=== PATIENT | male | born 1960 | race Caucasian/White ===

== ENCOUNTER 2016-11-21 14:58 | Emergency (ER) | payer OTHER ==
[~2016-11-21] VITALS: Ht 177.8 cm; Wt 88.0 kg
[2016-11-21 16:12] LABS: CONDITION Y; Hematocrit 43.7 % (41.0-53.0); Hemoglobin 14.6 g/dL (13.5-17.5); Mean Corpuscular Hemoglobin 27.8 pg (28.0-32.0); Mean Corpuscular Hgb Conc. 33.5 g/dL (32.0-36.0); Mean Corpuscular Volume 82.8 fL (80.0-100.0); Mean Platelet Volume 8.4 fL (7.4-10.4); Platelet Count (auto) 257 10^3/uL (140-450); Red Cell Distribution Width 14.9 % (11.6-16.0); SUSPECT SEE PRINTOUT; White Blood Cell 15.8 10^3/uL (4.4-10.8)
[2016-11-21 16:17] LABS: Metamyelocytes % 0; Myelocytes % 0; Promyelocytes % 0; Reactive Lymphocytes 0
[2016-11-21 16:25] LABS: Anion Gap 10 (5-15); Aspartate Aminotransferase 20 U/L (15-37); BUN/Creatinine Ratio 13.6; Blood Urea Nitrogen 14 mg/dL (7-18); Calcium 8.5 mg/dL (8.5-10.1); Carbon Dioxide 26 mmol/L (21-32); Chloride 105 mmol/L (98-107); GFR African American 96 mL/min; GFR Non-African American 79 mL/min; Glucose 189 mg/dL (74-106); Potassium 4.6 mmol/L (3.5-5.1); Sodium 141 mmol/L (136-145)
[2016-11-21 16:31] LABS: Alkaline Phosphatase 91 U/L (45-117); Bilirubin, Total 1.4 mg/dL (0.2-1.0); Total Protein 6.4 g/dL (6.4-8.2)
[2016-11-21 16:45] LABS: Anisocytosis Slight; Ovalocytes FEW; Platelet Estimate Adequate
[2016-11-21] MEDS ORDERED: SODIUM CHLORIDE 0.9% 1,000 ML IVB ONE ×2 (18:34)
[2016-11-21] MEDS ORDERED: SODIUM CHLORIDE 0.9% 1,000 ML IV ONE ×2 (18:34→20:00)
[2016-11-21] MEDS ORDERED: IOHEXOL 350 MG/ML 100ML IJ ONE (21:22)
[2016-11-21] MEDS ORDERED: ALBUTEROL SULF 2.5 MG/0.5ML(0.5%) NEB SOLN NEB ONE (21:45)
[2016-11-21] MEDS ORDERED: IPRATROPIUM BROM 0.5 MG/2.5ML INH SOL NEB ONE (21:45)
[2016-11-21 23:27] VITALS: BP 136/68
== END 2016-11-21 23:59 | disposition home or self-care (01) ==
LOC: ER 14:58
DX: J18.9 Pneumonia, unspecified organism (principal); E11.9 Type 2 diabetes mellitus without complications; R07.89 Other chest pain
CPT/HCPCS: 36415; 71020; 71275; 80053; 82550; 82962; 84484; 85007; 85027; 85379; 93005; 94640; 96360; 96361; 99285; J7030; Q9967

== ENCOUNTER 2023-02-28 07:49 | Inpatient (IN) | payer OTHER ==
[2023-02-27 23:50] VITALS: BP 129/71; PULSE 102; RESP 18; TEMP 97.9
[2023-02-28] VITALS (8 sets, daily range): BP systolic 129–130; BP diastolic 62–71; PULSE 101–121; RESP 18–27; TEMP 97.9; O2SAT 90–95
[~2023-02-28] VITALS: Ht 182.9 cm; Wt 95.4 kg
[~2023-02-28 07:49] MED LIST: FURO40TA4 PO; LISI-711 PO; POTA1TAB61 PO
[2023-02-28 08:56] LABS: Hematocrit 37.6 % (41.0-53.0); Hemoglobin 12.9 g/dL (13.5-17.5); Mean Corpuscular Hgb Conc. 34.2 g/dL (32.0-36.0); Red Blood Cells 4.76 10^6/uL (4.5-5.90); Red Cell Distribution Width 15.1 % (11.8-14.3); White Blood Cell 12.9 10^3/uL (4.4-10.8)
[2023-02-28 09:05] LABS: Basophils % (manual) 0 (0.0-2.0); Blast Cells 0; Eosinophils % (manual) 0 (0-7); Metamyelocytes % 0; Myelocytes % 0; Promyelocytes % 0; Reactive Lymphocytes 0
[2023-02-28 09:14] LABS: Alanine Aminotransferase 17 U/L (7-40); Albumin 4.2 g/dL (3.2-4.8); Alkaline Phosphatase 86 U/L (46-116); Anion Gap 11 (5-15); Aspartate Aminotransferase 17 U/L (13-40); Bilirubin, Total 1.6 mg/dL (0.2-1.0); Blood Urea Nitrogen 23 mg/dL (9-23); Calcium 8.5 mg/dL (8.5-10.1); Carbon Dioxide 23 mmol/L (20-30); Chloride 99 mmol/L (98-107); Glucose 238 mg/dL (74-106); Sodium 133 mmol/L (136-145); Total Protein 5.8 g/dL (5.7-8.2)
[2023-02-28] MEDS ORDERED: SODIUM CHLORIDE 0.9% 2,650 ML IV ONE (09:15)
[2023-02-28 09:29] LABS: Rapid Influenza B Negative (Negative)
[2023-02-28] MEDS ORDERED: cefTRIAXone 1GM/50ML D5W 50 ML IV ONE (09:30)
[2023-02-28] MEDS ORDERED: AZITHROMYCIN 500MG/ 250ML 250 ML IV ONE (09:30)
[2023-02-28 09:31] LABS: COVID19 ANTIGEN SOFIA FIA NEGATIVE (NEGATIVE); Rapid Influenza A Positive (Negative)
[2023-02-28 11:52] LABS: Urine Bacteria NONE SEEN /hpf (None Seen); Urine Blood TRACE /uL (Negative); Urine Clarity Clear (Clear); Urine Color Yellow (Yellow); Urine Protein, UAD 1+ (Negative); Urine Specific Gravity 1.018 (1.001-1.035); Urine Urobilinogen Normal (Negative); Urine WBC 3 /hpf (0 - 3); Urine pH 5.5 (5.0-8.0)
[2023-02-28 11:55] LABS: Amphetamine Screen, Urine Neg (NEGATIVE); Barbiturate Scree,Urine Neg (NEGATIVE); Benzodiazephine Screen, Urine Neg (NEGATIVE); Cannabinoid Screen, Urine Neg (NEGATIVE); Cocaine Screen, Urine Neg (NEGATIVE); Opiate Scree,Urine Neg (NEGATIVE); Phencyclidine Screen, Urine Neg (NEGATIVE)
[2023-02-28] MEDS ORDERED: DOCUSATE SOD 100 MG CAP PO PRN (12:00)
[2023-02-28] MEDS ORDERED: MORPHINE SULFATE INJ 2 MG/ml SYRG IV PRN (12:00)
[2023-02-28] MEDS ORDERED: DEXTROSE (50%) 50ML SYRG IV PRN (12:00)
[2023-02-28] MEDS ORDERED: ONDANSETRON HCL 4 MG/2 ML VIAL IV PRN (12:00)
[2023-02-28 12:26] LABS: Band Neutrophils % (manual) 14; Lymphocytes % (manual) 3 (10.0-50.0); Monocytes % (manual) 3 (0-12); Platelet Estimate Adequate
[2023-02-28] MEDS ORDERED: SODIUM CHLORIDE 0.9% 1,000 ML IV ONE (12:30)
[2023-02-28] MEDS: ALBUTEROL SULF 2.5 MG/0.5ML(0.5%) NEB SOLN NEB SCH ×2 (13:29→18:34)
[2023-02-28] MEDS: IPRATROPIUM BROM 0.5 MG/2.5ML INH SOL NEB SCH ×2 (13:30→18:34)
[2023-02-28 13:51] LABS: Base Excess 0.1 mmol/L (-2.0-2.0)
[2023-02-28] MEDS: SODIUM CHLORIDE 0.9% 1,000 ML IV SCH ×2 (14:43→20:20)
[2023-02-28] MEDS: methylPREDNISolone SOD SUCC 125 MG/2 ML VL IV SCH ×2 (14:43→22:26)
[2023-02-28 15:27] LABS: INR 1.09 (0.9-1.15); Prothrombin Time 11.4 sec (9.3-11.8)
[2023-02-28] MEDS: InsuLIN REG 1unit/0.01ml Soln (100units/ml) SC SCH ×2 (18:07→22:25)
[2023-02-28] MEDS: ACCU-CHEK COMFORT CURVE STRIP VI SCH ×2 (18:08→21:53)
[2023-02-28] MEDS: OSELTAMIVIR 75 MG CAP PO SCH (22:26)
[2023-03-01] VITALS (16 sets, daily range): BP systolic 133–141; BP diastolic 66–89; PULSE 87–105; RESP 18–22; TEMP 97.4–98.6; O2SAT 92–96
[2023-03-01] MEDS: ALBUTEROL SULF 2.5 MG/0.5ML(0.5%) NEB SOLN NEB SCH ×4 (00:22→18:10)
[2023-03-01] MEDS: IPRATROPIUM BROM 0.5 MG/2.5ML INH SOL NEB SCH ×4 (00:22→18:10)
[2023-03-01] MEDS: SODIUM CHLORIDE 0.9% 1,000 ML IV SCH ×2 (00:54→11:45)
[2023-03-01] MEDS: methylPREDNISolone SOD SUCC 125 MG/2 ML VL IV SCH ×2 (06:25→22:31)
[2023-03-01] MEDS: ACCU-CHEK COMFORT CURVE STRIP VI SCH ×4 (06:26→22:39)
[2023-03-01] MEDS: InsuLIN REG 1unit/0.01ml Soln (100units/ml) SC SCH ×3 (06:45→17:00)
[2023-03-01 07:52] LABS: Basophils # (auto) 0 10 ^3/uL (0-0.2); Basophils % (auto) 0.1 % (0.0-2.0); Eosinophils # (auto) 0 10 ^3/uL (0-0.8); Eosinophils % (auto) 0.1 % (0.0-7.0); Hematocrit 33.1 % (41.0-53.0); Hemoglobin 11.6 g/dL (13.5-17.5); Lymphocytes # (auto) 0.2 10 ^3/uL (0.4-5.4); Lymphocytes % (auto) 1.8 % (10.0-50.0); Mean Corpuscular Volume 80.1 fL (80.0-100.0); Monocytes # (auto) 0.3 10 ^3/uL (0-1.3); Monocytes % (auto) 2.7 % (0.0-12.0); Neutrophils # (auto) 10.1 10 ^3/uL (1.6-8.6); Neutrophils % (auto) 95.3 % (37.0-80.0); Red Blood Cells 4.13 10^6/uL (4.5-5.90); White Blood Cell 10.6 10^3/uL (4.4-10.8)
[2023-03-01 08:00] LABS: Alanine Aminotransferase 14 U/L (7-40); Albumin 3.8 g/dL (3.2-4.8); Alkaline Phosphatase 67 U/L (46-116); Anion Gap 6 (5-15); Aspartate Aminotransferase 18 U/L (13-40); BUN/Creatinine Ratio 12.9 (10.0-20.0); Bilirubin, Total 0.6 mg/dL (0.2-1.0); Blood Urea Nitrogen 12 mg/dL (9-23); Carbon Dioxide 24 mmol/L (20-30); Chloride 104 mmol/L (98-107); Glucose 253 mg/dL (74-106); Potassium 4.3 mmol/L (3.5-5.1); Sodium 134 mmol/L (136-145); Total Protein 5.4 g/dL (5.7-8.2)
[2023-03-01] MEDS ORDERED: DEXTROSE (50%) 50ML SYRG IV PRN (11:15)
[2023-03-01] MEDS ORDERED: INSULIN LANTUS (GLARGINE) 1 /0.01ml (100units/ml) SC ONE (11:15)
[2023-03-01] MEDS: OSELTAMIVIR 75 MG CAP PO SCH ×2 (11:44→22:30)
[2023-03-01] MEDS: LISINOPRIL 20 MG TAB PO SCH (11:45)
[2023-03-01] MEDS: GABAPENTIN 300 MG CAP PO SCH ×2 (18:17→22:30)
[2023-03-01] MEDS ORDERED: InsuLIN REG 1unit/0.01ml Soln (100units/ml) SC SCH (22:00)
[2023-03-01] MEDS: ATORVASTATIN 20 MG TAB PO SCH (22:30)
[2023-03-02] VITALS (14 sets, daily range): BP systolic 136–151; BP diastolic 72–93; PULSE 79–103; RESP 18–20; TEMP 97.4–99.4; O2SAT 90–96
[2023-03-02] MEDS: IPRATROPIUM BROM 0.5 MG/2.5ML INH SOL NEB SCH ×4 (00:17→18:37)
[2023-03-02] MEDS: ALBUTEROL SULF 2.5 MG/0.5ML(0.5%) NEB SOLN NEB SCH ×4 (00:17→18:37)
[2023-03-02] MEDS: SODIUM CHLORIDE 0.9% 1,000 ML IV SCH ×2 (03:55→21:26)
[2023-03-02 06:07] LABS: Hematocrit 31.8 % (41.0-53.0); Hemoglobin 11.3 g/dL (13.5-17.5); Mean Corpuscular Hemoglobin 28.1 pg (28.0-32.0); Mean Corpuscular Hgb Conc. 35.5 g/dL (32.0-36.0); Mean Corpuscular Volume 79.2 fL (80.0-100.0); Red Blood Cells 4.02 10^6/uL (4.5-5.90); White Blood Cell 9.7 10^3/uL (4.4-10.8)
[2023-03-02 06:10] LABS: Band Neutrophils % (manual) 0; Basophils % (manual) 0 (0.0-2.0); Blast Cells 0; Eosinophils % (manual) 0 (0-7); Metamyelocytes % 0; Monocytes % (manual) 0 (0-12); Myelocytes % 0; Promyelocytes % 0; Reactive Lymphocytes 0
[2023-03-02 06:21] LABS: Alanine Aminotransferase 15 U/L (7-40); Albumin 3.6 g/dL (3.2-4.8); Alkaline Phosphatase 68 U/L (46-116); Anion Gap 6 (5-15); Aspartate Aminotransferase 13 U/L (13-40); BUN/Creatinine Ratio 19.5 (10.0-20.0); Blood Urea Nitrogen 16 mg/dL (9-23); Calcium 7.7 mg/dL (8.7-10.4); Carbon Dioxide 24 mmol/L (20-30); Chloride 104 mmol/L (98-107); Glucose 288 mg/dL (74-106); Magnesium 2.1 mg/dL (1.6-2.6); Potassium 4.2 mmol/L (3.5-5.1); Sodium 134 mmol/L (136-145)
[2023-03-02 06:22] LABS: Bilirubin, Total 0.5 mg/dL (0.2-1.0); Total Protein 5.3 g/dL (5.7-8.2)
[2023-03-02] MEDS ORDERED: DEXTROSE (50%) 50ML SYRG IV PRN (06:45)
[2023-03-02 06:50] LABS: Lymphocytes % (manual) 4 (10.0-50.0); Platelet Estimate Adequate
[2023-03-02] MEDS ORDERED: INSULIN LANTUS (GLARGINE) 1 /0.01ml (100units/ml) SC SCH (07:00)
[2023-03-02] MEDS: GABAPENTIN 300 MG CAP PO SCH ×3 (07:14→21:26)
[2023-03-02] MEDS: ACCU-CHEK COMFORT CURVE STRIP VI SCH ×4 (08:12→21:38)
[2023-03-02] MEDS: InsuLIN REG 1unit/0.01ml Soln (100units/ml) SC SCH ×3 (08:17→17:41)
[2023-03-02] MEDS: INSULIN LANTUS (GLARGINE) 1 /0.01ml (100units/ml) SC SCH (08:18)
[2023-03-02] MEDS: OSELTAMIVIR 75 MG CAP PO SCH ×2 (09:35→21:26)
[2023-03-02] MEDS: methylPREDNISolone SOD SUCC 125 MG/2 ML VL IV SCH ×2 (09:35→21:26)
[2023-03-02] MEDS: LISINOPRIL 20 MG TAB PO SCH (09:35)
[2023-03-02] MEDS ORDERED: ATOR20TA50 PO (09:52)
[2023-03-02] MEDS ORDERED: INSREG3 IV (09:53)
[2023-03-02] MEDS ORDERED: GABA-339 PO (09:53)
[2023-03-02] MEDS ORDERED: TURM500C3 OR (09:54)
[2023-03-02] MEDS ORDERED: OMEG600C2 PO (09:54)
[2023-03-02] MEDS ORDERED: TAMIFLU PO (09:59)
[2023-03-02 13:18] LABS: Base Excess 1.3 mmol/L (-2.0-2.0)
[2023-03-02] MEDS: ATORVASTATIN 20 MG TAB PO SCH (21:26)
[2023-03-02] MEDS ORDERED: InsuLIN REG 1unit/0.01ml Soln (100units/ml) SC SCH (22:00)
[2023-03-03] VITALS (13 sets, daily range): BP systolic 146–157; BP diastolic 67–73; PULSE 86–110; RESP 16–22; TEMP 98.1–100.9; O2SAT 90–99
[2023-03-03] MEDS: GABAPENTIN 300 MG CAP PO SCH ×2 (05:43→15:56)
[2023-03-03] MEDS: InsuLIN REG 1unit/0.01ml Soln (100units/ml) SC SCH ×3 (05:44→17:09)
[2023-03-03] MEDS: INSULIN LANTUS (GLARGINE) 1 /0.01ml (100units/ml) SC SCH (05:45)
[2023-03-03] MEDS: ACCU-CHEK COMFORT CURVE STRIP VI SCH ×3 (05:46→17:00)
[2023-03-03] MEDS: IPRATROPIUM BROM 0.5 MG/2.5ML INH SOL NEB SCH ×3 (08:27→17:39)
[2023-03-03] MEDS: ALBUTEROL SULF 2.5 MG/0.5ML(0.5%) NEB SOLN NEB SCH ×3 (08:27→17:39)
[2023-03-03] MEDS: OSELTAMIVIR 75 MG CAP PO SCH (09:24)
[2023-03-03] MEDS: LISINOPRIL 20 MG TAB PO SCH (09:25)
[2023-03-03] MEDS: methylPREDNISolone SOD SUCC 125 MG/2 ML VL IV SCH (09:25)
[2023-03-03 10:16] LABS: Basophils # (auto) 0 10 ^3/uL (0-0.2); Basophils % (auto) 0.1 % (0.0-2.0); Eosinophils # (auto) 0 10 ^3/uL (0-0.8); Hematocrit 36.3 % (41.0-53.0); Hemoglobin 12.5 g/dL (13.5-17.5); Lymphocytes # (auto) 0.2 10 ^3/uL (0.4-5.4); Lymphocytes % (auto) 2.9 % (10.0-50.0); Mean Corpuscular Hemoglobin 27.4 pg (28.0-32.0); Mean Corpuscular Hgb Conc. 34.3 g/dL (32.0-36.0); Monocytes # (auto) 0.4 10 ^3/uL (0-1.3); Monocytes % (auto) 5.5 % (0.0-12.0); Neutrophils # (auto) 7.4 10 ^3/uL (1.6-8.6); Neutrophils % (auto) 91.5 % (37.0-80.0); Red Blood Cells 4.55 10^6/uL (4.5-5.90); Red Cell Distribution Width 15.4 % (11.8-14.3); White Blood Cell 8.1 10^3/uL (4.4-10.8)
[2023-03-03 10:25] LABS: Chloride 99 mmol/L (98-107); Potassium 4.2 mmol/L (3.5-5.1); Sodium 132 mmol/L (136-145)
[2023-03-03 10:26] LABS: Anion Gap 8 (5-15); Calcium 8.5 mg/dL (8.5-10.1); Carbon Dioxide 25 mmol/L (20-30)
[2023-03-03 10:31] LABS: BUN/Creatinine Ratio 18.7 (10.0-20.0); Blood Urea Nitrogen 20 mg/dL (9-23); Glucose 294 mg/dL (74-106)
[2023-03-03] MEDS: SODIUM CHLORIDE 0.9% 1,000 ML IV SCH (13:15)
== END 2023-03-03 18:33 | disposition home or self-care (01) | DRG 871 ==
LOC: ER 07:49 → EDSEX 07:49 → EDBD 07:49 → TELE 12:28 → TELE-CENTR 23:06
PROVIDERS: ADMIT Internal Medicine Pulmonary Disease; ATTEND Internal Medicine Pulmonary Disease
DX: A41.9 Sepsis, unspecified organism (principal); J10.00 Influenza due to other identified influenza virus with unspecified type of pneumonia; J96.01 Acute respiratory failure with hypoxia; J12.9 Viral pneumonia, unspecified; E87.1 Hypo-osmolality and hyponatremia; J44.1 Chronic obstructive pulmonary disease with (acute) exacerbation; J44.0 Chronic obstructive pulmonary disease with (acute) lower respiratory infection; J45.901 Unspecified asthma with (acute) exacerbation; E86.0 Dehydration; E78.5 Hyperlipidemia, unspecified; I10 Essential (primary) hypertension; E11.9 Type 2 diabetes mellitus without complications; M25.551 Pain in right hip; M25.552 Pain in left hip; R00.0 Tachycardia, unspecified; Z20.822 Contact with and (suspected) exposure to COVID-19; E11.42 Type 2 diabetes mellitus with diabetic polyneuropathy; W01.0XXA Fall on same level from slipping, tripping and stumbling without subsequent striking against object, initial encounter; Y92.89 Other specified places as the place of occurrence of the external cause; Z86.16 Personal history of COVID-19; Y99.8 Other external cause status; W22.01XA Walked into wall, initial encounter
CPT/HCPCS: 36415; 36600; 70450; 71045; 73502; 80048; 80053; 80307; 81001; 82805; 82962; 83036; 83605; 83735; 83880; 84443; 84484; 85007; 85025; 85027; 85610; 87040; 87086; 87426; 87804; 93005; 93306; 94640; 97163; 99291; G0378; J1815

== ENCOUNTER 2024-08-17 14:50 | Inpatient (IN) | payer BC, OTHER ==
[~2024-08-17] VITALS: Ht 177.8 cm; Wt 98.9 kg
[~2024-08-17 14:50] MED LIST changes: +ATOR20TA50 PO; +GABA-339 PO; +INSREG3 IV; +OMEG600C2 PO; +POTA-215 PO; -POTA1TAB61 PO; +TAMIFLU PO; +TURM500C3 OR
--- NOTE | 2024-08-17 15:04 | ED.PDOC ---
History of Present Illness HPI Comments 63-year-old male with PMHx HTN, DM presents with a chief complaint of cough, chest wall pain, and SOB x 2 days. Patient states that he has been having a nonproductive cough, hurts his chest wall when coughing, and has been associated with SOB. Patient is sating between 90-93% on room air. Patient does not use supplemental oxygen. Patient also is tachycardic at 110 BPM. Patient endorses sick contacts at home. Time Seen by MD: 14:57 Primary Care Provider: Kip Reviewed Notes: Medications, Allergies Allergies: Coded Allergies: Typhoid Vaccines (Verified Allergy, Unknown, 11/21/16) Home Meds Active Scripts Oseltamivir Phosphate (Tamiflu) 75 Mg Cap, 75 MG PO Q12HR for 4 Days, #8 CAP Prov:LÁZARO HERNANDEZ MD 03/02/23 Potassium Chloride (Klor-Con M10) 10 Meq Tab, 1 TAB PO DAILY, #30 TAB 0 Refills Prov:MAYA MARTIN MD 07/03/17 Furosemide (Furosemide) 40 Mg Tab, 1 TAB PO DAILY, #30 TAB 0 Refills Prov:MAYA MARTIN MD 07/03/17 Lisinopril (Zestril) 20 Mg Tab, 1 TAB PO DAILY, #30 TAB 0 Refills Prov:MAYA MARTIN MD 07/03/17 Reported Medications Cur[place] (Turmeric) Extra (TURMERIC) 500 Mg Cap, 500 MG OR, CAP 03/02/23 [place]-3 Fatty Acids (FISH OIL) 600 Mg Cap, 600 MG PO, CAP 03/02/23 Insulin Regular (Human) (Humulin R) 100 Unit/Ml Inj, 100 UNIT IV, INJ 03/02/23 Gabapentin (Gabapentin) 600 Mg Tab, 600 MG PO TID for 30 Days, MG 03/02/23 Atorvastatin Calcium (ATORVASTATIN CALCIUM) 20 Mg Tab, 1 TAB PO DAILY, #30 TAB 5 Refills 03/02/23 Information Source: Patient Mode of Arrival: Ambulatory Severity: Moderate Timing: Days Duration: Since onset Prehospital treatment: None Past Medical History PAST MEDICAL HISTORY: Cancer, DM, High Lipids, HTN Social History Smoker: Non-Smoker Alcohol: Occasionally Drugs: Denies Drug Use Lives In: Home Constitutional: denies: chills, diaphoresis, fatigue, fever, malaise, sweats, weakness, others EENTM: denies: blurred vision, double vision, ear bleeding, ear discharge, ear drainage, ear pain, ear ringing, eye pain, eye redness, hearing loss, mouth pain, mouth swelling, nasal discharge, nose bleeding, nose congestion, nose pain, photophobia, tearing, throat pain, throat swelling, voice changes, others Respiratory: reports: cough, shortness of breath; denies: hemoptysis, orthopnea, SOB at rest, SOB with excertion, stridor, wheezing, others Cardiovascular: denies: chest pain, dizzy spells, diaphoresis, Dyspnea on exertion, edema, irregular heart beat, left arm pain, lightheadedness, palpitations, PND, syncope, others Gastrointestinal: denies: abdomen distended, abdominal pain, blood streaked bowels, constipated, diarrhea, dysphagia, difficulty swallowing, hematemesis, melena, nausea, poor appetite, poor fluid intake, rectal bleeding, rectal pain, vomiting, others Genitourinary: denies: burning, dysuria, flank pain, frequency, hematuria, incontinence, penile discharge, penile sore, pain, testicle pain, testicle swelling, urgency, others Neurological: denies: dizziness, fainting, headache, left sided numbness, left sided weakness, numbness, paresthesia, pre-existing deficit, right sided numbness, right sided weakness, seizure, speech problems, tingling, tremors, weakness, others Musculoskeletal: reports: muscle pain; denies: back pain, gout, joint pain, joint swelling, muscle stiffness, neck pain, others Integumetry: denies: bruises, change in color, change in hair/nails, dryness, laceration, lesions, lumps, rash, wounds, others Allergic/Immunocompromised: denies: Difficulty Healing, Frequent Infections, Hives, Itching, others Hematologic/Lymphatic: denies: anemia, blood clots, easy bleeding, easy bruising, swollen glands, others Endocrine: denies: excessive hunger, excessive sweating, excessive thirst, excessive urination, flushing, intolerance to cold, intolerance to heat, unexplained weight gain, unexplained weight loss, others Psychiatric: denies: anxiety, bipolar disorder, depression, hopeless, panic disorder, schizophrenia, sleepless, suicidal, others All Other Systems: Reviewed and Negative Physical Exam General Appearance: Moderate Distress, Normal HEENT: Normal ENT Inspection, Pharynx Normal, TMs Normal Neck: Full Range of Motion, Non-Tender, Normal, Normal Inspection Respiratory: Chest Non-Tender, No Accessory Muscle Use, Other (Coarse breath sounds) Cardiovascular: No Edema, No JVD, No Murmur, No Gallop, Normal Peripheral Pulses, Regular Rate/Rhythm Breast Exam: Deferred Gastrointestinal: No Organomegaly, Non Tender, No Pulsatile Mass, Normal Bowel Sounds, Soft Genitalia: Deferred Pelvic: Deferred Rectal: Deferred Extremities: No calf tenderness, Normal capillary refill, Normal inspection, Normal range of motion, Non-tender, No pedal edema Musculoskeletal : Apperance: Normal Neurologic: Alert, concrete batcher II-XII nml as Tested, No Motor Deficits, Normal Affect, Normal Mood, No Sensory Deficits Cerebellar Function: Normal Reflexes: Normal Skin: Dry, Normal Color, Warm Peripheral Pulses: 3+ Radial (R), 3+ Radial (L) Lymphatic: No Adenopathy Was a procedure done? Was a procedure done?: No EKG EKG : Pulse Rate (adult): 120 [place]: Normal Cardiac Rhythm: NSR Block: None Hypertrophy: None ST: Normal Differential Dx Considerations may include: Pneumonitis Electrolyte imbalance X-Ray, Labs, Meds, VS Vital Signs Date Time Temp Pulse Resp B/P (MAP) Pulse Ox O2 Delivery O2 Flow Rate FiO2 08/17/24 15:02 100.8 111 20 144/67 (92) 94 100.8 Patient alert. Complaining of shortness a breath. Saturation in the low 90s on arrival. Tachycardia. Possible pneumonitis. Was given breathing treatment. Was given steroid. Was given Zosyn. No leg swelling. Reviewed his history. Has risk factors for coronary artery disease. Was given aspirin. Explained to the patient that he possibly has pneumonitis we will be admitted for further studies. Continue cardiac monitoring. Time of 1ST Reevaluation: 15:27 Reevaluation 1ST: Unchanged Patient Education/Counseling: Diagnosis, Treatment Family Education/Counseling: No Family Present Departure 1 Departure Time of Disposition: 15:06 Impression: Primary Impression: Pneumonitis Additional Impressions: Acute respiratory distress Uncontrolled diabetes mellitus Qualified Codes: E13.65 - Other specified diabetes mellitus with hyperglycemia HTN (hypertension) Qualified Codes: I10 - Essential (primary) hypertension Disposition: ADMITTED INPATIENT Admit to: Med Surg Condition: Guarded Critical Care Note Critical Care Time?: Yes (90 min-critical care time only) Critical care comment: Low saturation placed on oxygen Stability Stability form required: No Heart Score Heart Score: Heart Score Response (Comments) Value History Slightly Suspicious 0 EKG Normal 0 Age 45-64 1 Risk Factors >3 or Hx ASHD 2 Troponin Normal limit 0 Total 3 I personally scribed for MARIZOL COLÓN MD ([email or web address]) on 08/17/24 at 15:04. Electronically submitted by Lalito Cano ([email or web address]). I personally scribed for MARIZOL COLÓN MD ([email or web address]) on 08/17/24 at 15:09. Electronically submitted by Lalito Cano ([email or web address]). MARIZOL COLÓN MD Aug 17, 2024 15:04
[2024-08-17] MEDS: ASPirin 325 MG TAB PO ONE (15:13)
[2024-08-17] MEDS: ACETAMINOPHEN 325 MG TAB PO ONE (15:13)
[2024-08-17] MEDS: ALBUTEROL SULF 2.5 MG/0.5ML(0.5%) NEB SOLN NEB ONE (15:19)
[2024-08-17] MEDS: IPRATROPIUM BROM 0.5 MG/2.5ML INH SOL NEB ONE (15:19)
--- NOTE | 2024-08-17 15:22 | ECG ---
[facility] Test Date: 2024-08-17 Test Time: 15:06:17 Pat Name: GILBERTO WATT Department: ED Room: [address] [place] [address] Gender: M Plane Tender: LEYLA : 1960 Requested By: MARIZOL COLÓN Order Number: [id number] Reading MD: Amilcar Kauffman Measurements Intervals [place] Rate: 112 P: 64 ME: 178 QRS: 95 QRSD: 84 T: 62 QT: 312 QTc: 426 Interpretive Statements Sinus tachycardia Probable left atrial enlargement Anterior infarct, old Electronically Signed On 08-17-2024 22:37:15 PDT by Amilcar Kauffman Please click the below link to view image of tracing.
[2024-08-17 15:26] LABS: Basophils # (auto) 0.1 10 ^3/uL (0-0.2); Eosinophils # (auto) 0.4 10 ^3/uL (0-0.8); Lymphocytes # (auto) 0.5 10 ^3/uL (0.4-5.4); Lymphocytes % (auto) 3.1 % (10.0-50.0); Monocytes # (auto) 0.7 10 ^3/uL (0-1.3)
[2024-08-17 15:30] LABS: Basophils % (auto) 0.7 % (0.0-2.0); Eosinophils % (auto) 2.4 % (0.0-7.0); Hematocrit 40.9 % (41.0-53.0); Hemoglobin 14.2 g/dL (13.5-17.5); Mean Corpuscular Hemoglobin 27.5 pg (28.0-32.0); Mean Corpuscular Hgb Conc. 34.7 g/dL (32.0-36.0); Mean Corpuscular Volume 79.4 fL (80.0-100.0); Monocytes % (auto) 4.2 % (0.0-12.0); Neutrophils # (auto) 14.3 10 ^3/uL (1.6-8.6); Neutrophils % (auto) 89.6 % (37.0-80.0); Nucleated Red Blood Cells % 0.1 %; Platelet Count (auto) 255 10^3/uL (140-450); Red Blood Cells 5.15 10^6/uL (4.5-5.90); Red Cell Distribution Width 15.3 % (11.8-14.3)
[2024-08-17 15:36] LABS: Chloride 105 mmol/L (98-107); Potassium 3.9 mmol/L (3.5-5.1); Sodium 138 mmol/L (136-145)
[2024-08-17 15:37] LABS: Anion Gap 7 (5-15); Calcium 9.8 mg/dL (8.7-10.4); Carbon Dioxide 26 mmol/L (20-31)
[2024-08-17 15:42] LABS: BUN/Creatinine Ratio 15.5 (10.0-20.0); Blood Urea Nitrogen 16 mg/dL (9-23)
[2024-08-17 15:53] LABS: Glucose 79 mg/dL (74-106)
--- NOTE | 2024-08-17 15:59 | DVH ---
CHEST RADIOGRAPH Indication: sob Technique: Single frontal view of the chest was obtained COMPARISON: XY CHEST PORTABLE on DOS: 02/28/23 FINDINGS: Lines and Tubes: None Lungs: Clear Pleura: No effusion. No pneumothorax. Cardiomediastinal contours: Unremarkable Bones: Unremarkable IMPRESSION: No acute disease.
[2024-08-17] MEDS: methylPREDNISolone SOD SUCC 125 MG/2 ML VL IV ONE (17:02)
[2024-08-17 21:06] VITALS: BP 147/68; PULSE 90; RESP 18; O2SAT 97
--- NOTE | 2024-08-17 21:10 | DVHHPRES ---
History of Present Illness Resident Creating Document: KRUNAL EVERETT RESIDENT History of Present Illness This is a 63-year-old male with past medical history of hypertension, type 1 diabetes mellitus, dyslipidemia, asthma who presented to the ED with chief complaint of shortness of breath, cough and chest pain. Patient reports that all his symptoms started 2 days ago, which started with sore throat that progressively got worse associated with cough, chest pain and shortness of breaths. The patient states that the chest pain is precipitated by cough but an irregular basis he does not have any chest pain. Patient states that cough recently got worse with the sputum production which was greenish in color. Patient also reported fever on admission but denies chills, abdominal pain, night sweats, weight loss or any other associated symptoms. The patient also reports that he is originally from [place] and that he just came to visit for a graduation. Initial chest x-ray showed no evidence of clear consolidations and patient was requiring 2 L of oxygen through nasal cannula. Initial WBC was elevated at 16, BNP was grossly unremarkable with a creatinine of 1.03 and BUN of 16. Troponins were negative and rest of labs and physical examination were unremarkable. We will admit the patient for further assessment and management of possible bacterial pneumonia. Home medications: Patient is on an insulin pump, which gives 16 units of lispro plus sliding scale insulin based on carbohydrate count. Patient is also on lisinopril 20 mg daily and atorvastatin 20 mg daily. Past surgical history: Left shoulder rotator cuff repair in 2018 Social history: Denies smoking, alcohol or drug intake. Lives with family in [place]. Cardiovascular: HTN, hyperipidemia Pulmonary: Asthma Endocrine: Diabetes Past Surgical History: Other (Left shoulder rotator cuff repair in 2018) Family History: None Smoke: No ALCOHOL: none Drugs: None Lives: with Family Domestic Violence: Neg Review of Systems Constitutional: Yes: Fever; No: Chills, Sweats, Weakness, Malaise, Other Eyes: No: Pain, Vision change, Conjunctivae inflammation, Eyelid inflammation, Other, Redness ENT: No: Ear pain, Ear discharge, Nose pain, Nose discharge, Nose congestion, Mouth pain, Mouth swelling, Throat pain, Throat swelling, Other Respiratory: Cough, Dry, Shortness of breath, Sputum; No: SOB with excertion, Wheezing, Hemoptysis, Pleuritic Pain, Wheezing, Other Cardiovascular: Chest Pain; No: Palpitations, Orthopnea, Paroxysmal Noc. Dyspnea, Edema, Lt Headedness, Other Gastrointestinal: No: Nausea, Vomiting, Abdominal Pain, Diarrhea, Constipation, Melena, Hematochezia, Other Genitourinary: No Dysuria, No Frequency, No Incontinence, No Hematuria, No Retention, No Other Musculoskeletal: No: other, neck pain, shoulder pain, arm pain, back pain, hand pain, leg pain, foot pain Skin: No: Rash, Lesions, Jaundice, Bruising, Other Neurological: No: Weakness, Numbness, Incoordination, Change in speech, Confusion, Seizures, Other Allergies: Coded Allergies: Typhoid Vaccines (Verified Allergy, Unknown, 11/21/16) Medications Current Medications Medications Dose Ordered Sig/Jessica Route Start Time Stop Time Status Last Admin Dose Admin Sodium Chloride 1,000 ml @ 75 mls/hr [id number] IV 08/17/24 21:00 Acetaminophen 650 mg Q6HP PRN PO 08/17/24 21:00 Enoxaparin Sodium 40 mg DAILY SC 08/18/24 10:00 Ceftriaxone Sodium 50 ml @ 100 mls/hr DAILY IV 08/17/24 21:00 UNV Azithromycin 250 mg DAILY PO 08/18/24 10:00 UNV Albuterol 2.5 mg Q4HR NEB 08/17/24 22:00 UNV Ipratropium [place] 0.5 mg Q4HR NEB 08/17/24 22:00 UNV Methylprednisolone Sodium Succinate 40 mg BID IV 08/17/24 22:00 UNV Exam Vital Signs Vital Signs Date Time Temp Pulse Resp B/P (MAP) Pulse Ox O2 Delivery O2 Flow Rate FiO2 08/17/24 19:28 97.8 90 18 147/68 (94) 97.8 08/17/24 15:19 97 Nasal Cannula* 2 28 General Appearance: Alert, Oriented X3, Cooperative, No acute distress HEENT: Atraumatic, PERRLA, EOMI, Mucous membr. moist/pink Respiratory: Clear to auscultation, Normal air movement Cardiovascular: Regular rate, Normal S1, Normal S2, No murmurs Abdominal: Normal bowel sounds, Soft, No tenderness, No hepatospenomegaly, No masses Extremities: No clubbing, No cyanosis, No edema, Normal pulses, No tenderness /swelling Skin: No rashes, No breakdown, No significant lesion Neuro: Normal gait, Normal speech, Strength at 5/5 X4 ext, Normal tone, Sensation intact, Cranial nerves 3-12 NL, Reflexes 2+ Psych/Mental Status: Mental status NL, Mood NL Labs/Xrays Labs Test 08/17/24 18:11 08/17/24 15:12 Range/Units Troponin I High Sensitivity 4 </=54 ng/L White Blood Count 16.0 H 4.4-10.8 10^3/uL Red Blood Count 5.15 4.5-5.90 10^6/uL Hemoglobin 14.2 13.5-17.5 g/dL Hematocrit 40.9 L 41.0-53.0 % Mean Corpuscular Volume 79.4 L 80.0-100.0 fL Mean Corpuscular Hemoglobin 27.5 L 28.0-32.0 pg Mean Corpuscular Hemoglobin Concent 34.7 32.0-36.0 g/dL Red Cell Distribution Width 15.3 H 11.8-14.3 % Platelet Count 255 140-450 10^3/uL Mean Platelet Volume 7.9 6.9-10.8 fL Neutrophils (%) (Auto) 89.6 H 37.0-80.0 % Lymphocytes (%) (Auto) 3.1 L 10.0-50.0 % Monocytes (%) (Auto) 4.2 0.0-12.0 % Eosinophils (%) (Auto) 2.4 0.0-7.0 % Basophils (%) (Auto) 0.7 0.0-2.0 % Neutrophils # (Auto) 14.3 H 1.6-8.6 10 ^3/uL Lymphocytes # (Auto) 0.5 0.4-5.4 10 ^3/uL Monocytes # (Auto) 0.7 0-1.3 10 ^3/uL Eosinophils # (Auto) 0.4 0-0.8 10 ^3/uL Basophils # (Auto) 0.1 0-0.2 10 ^3/uL Nucleated Red Blood Cells 0.1 % Sodium Level 138 136-145 mmol/L Potassium Level 3.9 3.5-5.1 mmol/L Chloride Level 105 98-107 mmol/L Carbon Dioxide Level 26 20-31 mmol/L Anion Gap 7 5-15 Blood Urea Nitrogen 16 9-23 mg/dL Creatinine 1.03 0.700-1.30 mg/dL Glomerular Filtration Rate Calc 82 >90 mL/min BUN/Creatinine Ratio 15.5 10.0-20.0 Serum Glucose 79 74-106 mg/dL Calcium Level 9.8 8.7-10.4 mg/dL Assessment/Plan Assessment/Plan Assessment/plan Acute hypoxic respiratory failure likely due to Gram-positive/Gram-negative bacterial pneumonia Sepsis likely due to above Possible viral pneumonia -WBC was 16 associated with fever, tachycardia and requiring 2 L of oxygen through nasal cannula -initial chest x-ray was grossly unremarkable with no evidence of clear consolidations. -ordered COVID Ladi antigen test and influenza a and B -start IV ceftriaxone -start IV azithromycin -start methylprednisolone 40 mg b.i.d. (patient was having wheezing on expirati on) -start albuterol and ipratropium med nebs q.4 hours -monitor oxygen saturation Type 1 diabetes mellitus on insulin pump -patient states that the pump give 16 units of lispro plus a sliding scale based on carbohydrate count -ordered hemoglobin A1c -sliding scale insulin -monitor blood glucose closely Primary hypertension -start lisinopril 20 mg daily -monitor blood pressure Dyslipidemia -start atorvastatin 20 mg daily -ordered lipid panel Goals of care discussed with the patient at bedside for > 35min, FULL CODE Plan discussed with Dr. Sheppard Plan discussed with: Patient My Orders Orders - KRUNAL EVERETT RESIDENT Procedure Category Date Status Time Admit ADMIT 08/17/24 Transmitted 20:48 Code Status CODE 08/17/24 Transmitted 20:48 Vital Signs JUANA 08/17/24 In Process 20:48 Review Orders With JUANA 08/17/24 In Process Adm. 20:48 Encourage Activity As JUANA 08/17/24 In Process Tolerate 20:48 Regular Diet DIET 08/18/24 Transmitted Breakfast Sodium Chloride 0.9% PHA 08/17/24 In Process 21:00 Acetaminophen Tablet PHA 08/17/24 In Process (Tylenol Tablet) 21:00 Notify Of Changes JUANA 08/17/24 In Process From Base 20:48 Advance Directive JUANA 08/17/24 In Process 20:48 Basic Metabolic Panel LAB 08/18/24 Verified 04:00 Complete Blood Count LAB 08/18/24 Verified 04:00 Lipid Panel LAB 08/17/24 In Process 20:48 Patient Condition ORDERS 08/17/24 Transmitted 20:48 Allergies JUANA 08/17/24 In Process 20:48 Drug Screen LAB 08/17/24 Logged 20:48 Hemoglobin A1c LAB 08/17/24 In Process 20:48 Enoxaparin Sodium PHA 08/18/24 In Process (Lovenox) 10:00 Covid19 Antigen Lizzie LAB 08/17/24 Logged Rapid Influenza A&B LAB 08/17/24 Logged 20:53 Ceftriaxone 1gm/50ml PHA 08/17/24 Logged D5w (Rocephin) 21:00 Azithromycin 500mg/ PHA 08/17/24 Logged 250ml (Zithromax 50 21:00 Azithromycin Tablet PHA 08/18/24 Logged (Zithromax Tablet) 10:00 Albuterol Medneb PHA 08/17/24 Logged (Ventolin Medneb) 22:00 Ipratropium Medneb PHA 08/17/24 Logged (Atrovent Medneb) 22:00 Methylprednisolone PHA 08/17/24 Transmitted Sod Succ (Solu Medrol 22:00 Lisinopril Tablet PHA 08/18/24 Verified (Zestril Tablet) 10:00 Atorvastatin (Lipitor) PHA 08/17/24 Verified 21:00 Date of Service: Aug 17, 2024 Billing Provider: HAYLEY SHEPPARD MD Common Visit Codes: [id number] INP/OBS CARE (HIGH) Secondary Visit Codes: 88688-[id number] CARE PLAN 30 MINUTES KRUNAL EVERETT RESIDENT Aug 17, 2024 21:10 HAYLEY SHEPPARD MD Aug 18, 2024 21:40
[2024-08-17 21:15] LABS: Triglycerides 90 mg/dL (< 150)
[2024-08-17 21:16] LABS: LDL Cholesterol 57 mg/dL (< 100)
[2024-08-17 21:17] LABS: Cholesterol 105 mg/dL (< 200)
[2024-08-17 21:18] LABS: HDL Cholesterol 33 mg/dL (40-59)
[2024-08-17 22:06] VITALS: PULSE 87; RESP 18; O2SAT 98
[2024-08-17] MEDS: ALBUTEROL SULF 2.5 MG/0.5ML(0.5%) NEB SOLN NEB SCH (22:07)
[2024-08-17] MEDS: IPRATROPIUM BROM 0.5 MG/2.5ML INH SOL NEB SCH (22:07)
[2024-08-17 22:14] VITALS: PULSE 85; RESP 18; O2SAT 100
[2024-08-17 22:46] LABS: COVID19 ANTIGEN SOFIA FIA NEGATIVE (NEGATIVE); Rapid Influenza A Negative (Negative); Rapid Influenza B Negative (Negative)
[2024-08-18] VITALS (16 sets, daily range): BP systolic 92–135; BP diastolic 63–68; PULSE 81–104; RESP 14–20; TEMP 97.5–98.1; O2SAT 94–100
[2024-08-18] MEDS: ATORVASTATIN 20 MG TAB PO SCH (00:42)
[2024-08-18] MEDS: cefTRIAXone 1GM/50ML D5W 50 ML IV SCH (01:11)
[2024-08-18] MEDS: AZITHROMYCIN 500MG/ 250ML 250 ML IV ONE ×2 (01:12→12:37)
[2024-08-18] MEDS: methylPREDNISolone SOD SUCC 40 MG/ML VL IV SCH (01:12)
[2024-08-18] MEDS: SODIUM CHLORIDE 0.9% 1,000 ML IV SCH (01:12)
[2024-08-18 06:14] LABS: Basophils # (auto) 0 10 ^3/uL (0-0.2); Basophils % (auto) 0.1 % (0.0-2.0); Eosinophils # (auto) 0 10 ^3/uL (0-0.8); Eosinophils % (auto) 0.1 % (0.0-7.0); Hemoglobin 12.8 g/dL (13.5-17.5); Lymphocytes # (auto) 0.2 10 ^3/uL (0.4-5.4); Lymphocytes % (auto) 1.5 % (10.0-50.0); Mean Corpuscular Hemoglobin 27.6 pg (28.0-32.0); Mean Corpuscular Hgb Conc. 34.6 g/dL (32.0-36.0); Mean Corpuscular Volume 79.7 fL (80.0-100.0); Monocytes # (auto) 0.2 10 ^3/uL (0-1.3); Monocytes % (auto) 1.7 % (0.0-12.0); Neutrophils # (auto) 10.9 10 ^3/uL (1.6-8.6); Neutrophils % (auto) 96.6 % (37.0-80.0); Platelet Count (auto) 193 10^3/uL (140-450); Red Blood Cells 4.64 10^6/uL (4.5-5.90); Red Cell Distribution Width 15.3 % (11.8-14.3); White Blood Cell 11.2 10^3/uL (4.4-10.8)
[2024-08-18 06:28] LABS: Chloride 102 mmol/L (98-107); Potassium 4.1 mmol/L (3.5-5.1)
[2024-08-18 06:29] LABS: Anion Gap 10 (5-15); Carbon Dioxide 22 mmol/L (20-31)
[2024-08-18 06:33] LABS: Calcium 8.4 mg/dL (8.7-10.4); Sodium 134 mmol/L (136-145)
[2024-08-18 06:34] LABS: BUN/Creatinine Ratio 22.9 (10.0-20.0)
[2024-08-18 06:35] LABS: Blood Urea Nitrogen 25 mg/dL (9-23); Glucose 344 mg/dL (74-106)
[2024-08-18] MEDS ORDERED: AZITHROMYCIN 250 MG TAB PO SCH (10:00)
[2024-08-18] MEDS: ENOXAPARIN SOD 40 MG/0.4 ML SYRINGE SC SCH (10:34)
[2024-08-18] MEDS: GABAPENTIN 300 MG CAP PO SCH (10:34)
[2024-08-18] MEDS: LISINOPRIL 20 MG TAB PO SCH (10:35)
--- NOTE | 2024-08-18 10:36 | DVHPNRES ---
Progress Note Date Seen: Aug 18, 2024 Resident Creating Document: JUAN GARDNER RESIDENT Medical Necessity Reason Pt with a Central, PICC or Fol: No Subjective Review of Systems 63 YO M patient with a history of diabetes, hypertension, hyperlipidemia, neuropathy, and asthma, presents with cough, shortness of breath, and low oxygen levels for the past couple of days. Pt reports feeling unwell for a few days, experiencing cough, shortness of breath, and an oxygen level around 90. He attempted to self-medicate with Mucinex at home, which usually helps but was ineffective this time. The patient notes that his shortness of breath has improved since admission, but he still experiences pain when coughing and produces Yellow sputum. He also reports nasal congestion for the past 2-3 days, which has affected his sense of smell. The patient denies any known sick contacts. He uses an inhaler for asthma as needed. Pt denies smoking, rarely drinks alcohol, and has no history of drug. He does not use oxygen at home. CONSTITUTIONAL: Admits: fever and chills. HEENT: Denies changes in vision and hearing. RESPIRATORY: Admits cough and SOB CV: Denies palpitations and chest pain. GI: Denies abdominal pain, nausea, vomiting and diarrhea. : Denies dysuria and urinary frequency. MSK: Denies myalgia and joint pain. SKIN: Denies rash and pruritus. NEUROLOGICAL: Denies headache Objective vital signs Vital Sign Date Time Temp Pulse Resp B/P (MAP) Pulse Ox O2 Delivery O2 Flow Rate FiO2 08/18/24 08:00 Nasal Cannula* 3 32 08/18/24 06:33 91 14 99 08/17/24 21:06 147/68 08/17/24 19:28 97.8 97.8 Total Intake and Output 08/17/24 08/17/24 08/18/24 15:00 23:00 07:00 Intake Total 575 ml Balance 575 ml medications Current Medications Medications Dose Ordered Sig/Jessica Route Start Time Stop Time Status Last Admin Dose Admin Sodium Chloride 1,000 ml @ 75 mls/hr [id number] IV 08/17/24 21:00 Acetaminophen 650 mg Q6HP PRN PO 08/17/24 21:00 Enoxaparin Sodium 40 mg DAILY SC 08/18/24 10:00 Ceftriaxone Sodium 50 ml @ 100 mls/hr DAILY IV 08/17/24 21:00 Albuterol 2.5 mg Q4HR NEB 08/17/24 22:00 08/18/24 06:25 2.5 MG Ipratropium [place] 0.5 mg Q4HR NEB 08/17/24 22:00 08/18/24 06:25 0.5 MG Lisinopril 20 mg DAILY PO 08/18/24 10:00 Atorvastatin Calcium 20 mg DAILY PO 08/17/24 21:00 Gabapentin 600 mg BID PO 08/18/24 10:00 Azithromycin 250 ml @ 125 mls/hr DAILY IV 08/19/24 10:00 UNV Guaifenesin/ Dextromethorphan 10 ml Q4HP PRN PO 08/18/24 10:45 UNV Examination GENERAL: Not in acute distress. HEENT: EOMI, Moist mucous membranes. No scleral icterus. No cervical lymphadenopathy. LUNGS: Wheezing Positive. No accessory muscle use. on 3 L O2 CARDIOVASCULAR: Regular rate and rhythm. No murmur. No JVD. ABDOMEN: Soft, nontender and nondistended. No palpable masses. EXTREMITIES: No edema. Nontender. SKIN: No rashes or lesions. Warm. NEUROLOGIC: Alert and oriented X4 laboratory and microbiology Laboratory Tests 08/18/24 05:38 Test 08/18/24 05:38 Range/Units Serum Glucose 344 #H 74-106 mg/dL Problem List/Assessment/Plan Problem List/Assessment/Plan # Sepsis secondary to possible Gm +/- Bacterial Pneumonia # Acute hypoxic respiratory failure likely due to Gram-positive/Gram-negative bacterial pneumonia - on admission patient's WBC 16.0, temperature was 100.8 F, HR: 112, RR 20, O2 sat was 94%, with 4 L of supplemental oxygen - now on 3 L supplemental oxygen - COVID-19, Flu negative -Chest X-ray is clear, but clinical presentation is consistent with possible pneumonia - Continue ceftriaxone and azithromycin for empiric antibiotic . - Continue breathing treatments - Monitor temperature and oxygen saturation - Observe for improvement in shortness of breath and cough - Robitussin p.r.n. for cough # Asthma, not acute exacerbation - continue breathing treatment as needed - Continue as-needed inhaler - Reassess need for additional asthma management upon discharge # Type 1 diabetes mellitus on insulin pump -Hemoglobin A1C: 8.1% -patient states that the pump give 16 units of lispro plus a sliding scale based on carbohydrate count -sliding scale insulin -monitor blood glucose closely # Diabetic neuropathy - continue gabapentin 600 mg b.i.d. # Primary hypertension -continue lisinopril 20 mg daily -monitor blood pressure # Dyslipidemia -continue atorvastatin 20 mg daily - lipid panel: Controlled with medication # Obesity - BMI is 31.2 - lifestyle modification, low calorie diet, regular exercise. Goals of care discussed with the patient at bedside for 29min, FULL CODE Plan discussed with Dr. Farfan Plan discussed with: Patient My Orders My Orders Orders - JUAN GARDNER RESIDENT Procedure Category Date Status Time Gabapentin Capsule PHA 08/18/24 In Process (Neurontin Capsule) 10:00 Azithromycin 500mg/ PHA 08/19/24 Logged 250ml (Zithromax 50 10:00 Azithromycin 500mg/ PHA 08/18/24 Logged 250ml (Zithromax 50 10:30 Guaifenesin-Dextromet PHA 08/18/24 Logged Liquid (Robitussin 10:45 JUAN GARDNER RESIDENT Aug 18, 2024 10:36
[2024-08-18] MEDS ORDERED: guaiFENesin-DM 100/10mg/5ml SYR PO PRN (10:45)
[2024-08-19] VITALS (12 sets, daily range): BP systolic 121–138; BP diastolic 58–74; PULSE 74–84; RESP 16–18; TEMP 97.3–97.5; O2SAT 10–100
[2024-08-19] MEDS: ACETAMINOPHEN 325 MG TAB PO PRN (03:30)
[2024-08-19 06:05] LABS: Anion Gap 7 (5-15); Carbon Dioxide 26 mmol/L (20-31); Chloride 104 mmol/L (98-107); Potassium 4.2 mmol/L (3.5-5.1); Sodium 137 mmol/L (136-145)
[2024-08-19 06:09] LABS: Basophils # (auto) 0 10 ^3/uL (0-0.2); Basophils % (auto) 0.5 % (0.0-2.0); Eosinophils # (auto) 0.3 10 ^3/uL (0-0.8); Eosinophils % (auto) 3.5 % (0.0-7.0); Hematocrit 32.7 % (41.0-53.0); Hemoglobin 11.3 g/dL (13.5-17.5); Lymphocytes # (auto) 0.4 10 ^3/uL (0.4-5.4); Mean Corpuscular Hemoglobin 27.9 pg (28.0-32.0); Mean Corpuscular Hgb Conc. 34.6 g/dL (32.0-36.0); Mean Corpuscular Volume 80.8 fL (80.0-100.0); Monocytes # (auto) 0.4 10 ^3/uL (0-1.3); Platelet Count (auto) 182 10^3/uL (140-450); Red Blood Cells 4.05 10^6/uL (4.5-5.90); Red Cell Distribution Width 15.5 % (11.8-14.3); White Blood Cell 7.2 10^3/uL (4.4-10.8)
[2024-08-19 06:11] LABS: BUN/Creatinine Ratio 22.7 (10.0-20.0)
[2024-08-19 06:17] LABS: Blood Urea Nitrogen 25 mg/dL (9-23); Calcium 8.3 mg/dL (8.7-10.4); Glucose 350 mg/dL (74-106)
[2024-08-19] MEDS: AZITHROMYCIN 500MG/ 250ML 250 ML IV SCH (09:05)
[2024-08-19] MEDS ORDERED: AUG875T PO (12:01)
[2024-08-19] MEDS ORDERED: DOXY1CAP57 PO (12:01)
--- NOTE | 2024-08-19 12:05 | DVHDSRES ---
Discharge Summary Date of Admission Resident Creating Document: JUAN GARDNER RESIDENT Aug 17, 2024 at 20:48 Date of Discharge: Aug 19, 2024 Admitting Diagnosis Acute hypoxic respiratory failure due to pneumonia Labs/Diagnostic Data: Laboratory Results Test 08/19/24 05:17 08/17/24 22:08 08/17/24 21:23 08/17/24 18:11 White Blood Count 7.2 10^3/uL (4.4-10.8) Red Blood Count 4.05 10^6/uL (4.5-5.90) Hemoglobin 11.3 g/dL (13.5-17.5) Hematocrit 32.7 % (41.0-53.0) Mean Corpuscular Volume 80.8 fL (80.0-100.0) Mean Corpuscular Hemoglobin 27.9 pg (28.0-32.0) Mean Corpuscular Hemoglobin Concent 34.6 g/dL (32.0-36.0) Red Cell Distribution Width 15.5 % (11.8-14.3) Platelet Count 182 10^3/uL (140-450) Mean Platelet Volume 8.1 fL (6.9-10.8) Neutrophils (%) (Auto) 84.0 % (37.0-80.0) Lymphocytes (%) (Auto) 6.0 % (10.0-50.0) Monocytes (%) (Auto) 6.0 % (0.0-12.0) Eosinophils (%) (Auto) 3.5 % (0.0-7.0) Basophils (%) (Auto) 0.5 % (0.0-2.0) Neutrophils # (Auto) 6.0 10 ^3/uL (1.6-8.6) Lymphocytes # (Auto) 0.4 10 ^3/uL (0.4-5.4) Monocytes # (Auto) 0.4 10 ^3/uL (0-1.3) Eosinophils # (Auto) 0.3 10 ^3/uL (0-0.8) Basophils # (Auto) 0 10 ^3/uL (0-0.2) Nucleated Red Blood Cells 0.0 % Sodium Level 137 mmol/L (136-145) Potassium Level 4.2 mmol/L (3.5-5.1) Chloride Level 104 mmol/L (98-107) Carbon Dioxide Level 26 mmol/L (20-31) Anion Gap 7 (5-15) Blood Urea Nitrogen 25 mg/dL (9-23) Creatinine 1.10 mg/dL (0.700-1.30) Glomerular Filtration Rate Calc 75 mL/min (>90) BUN/Creatinine Ratio 22.7 (10.0-20.0) Serum Glucose 350 mg/dL (74-106) Calcium Level 8.3 mg/dL (8.7-10.4) Influenza Type A Antigen Negative (Negative) Influenza Type B Antigen Negative (Negative) SARS-CoV-2 Antigen (Rapid) Negative (NEGATIVE) Lactic Acid Level 1.2 mmol/L (0.4-2.0) Troponin I High Sensitivity 4 ng/L (</=54) Triglycerides Level 90 mg/dL (< 150) Cholesterol Level 105 mg/dL (< 200) LDL Cholesterol 57 mg/dL (< 100) HDL Cholesterol 33 mg/dL (40-59) Test 08/17/24 15:12 Hemoglobin A1c 8.1 % A1C (<5.7) Other Laboratory Tests 08/19/24 05:17 Brief Hx & Hospital Course: 63 YO M patient with a history of diabetes, hypertension, hyperlipidemia, neuropathy, and asthma, presents with cough, shortness of breath, and low oxygen levels for the past couple of days. Pt reports feeling unwell for a few days, experiencing cough, shortness of breath, and an oxygen level around 90. He attempted to self-medicate with Mucinex at home, which usually helps but was ineffective this time. The patient notes that his shortness of breath has improved since admission, but he still experiences pain when coughing and produces Yellow sputum. He also reports nasal congestion for the past 2-3 days, which has affected his sense of smell. The patient denies any known sick contacts. He uses an inhaler for asthma as needed. Pt denies smoking, rarely drinks alcohol, and has no history of drug. He does not use oxygen at home. on admission patient's WBC 16.0, temperature was 100.8 F, HR: 112, RR 20, O2 sat was 94%, with 4 L of supplemental oxygen - COVID-19, Flu negative -Chest X-ray is clear, but clinical presentation is consistent with possible pneumonia. Patient is treated with IV Rocephin and IV azithromycin, patient is feeling better today, does not complain of shortness of breaths, patient is off oxygen from the morning breathing comfortably in room air, oxygen saturation more than 96%, patient has very mild wheezing, patient is hemodynamically stable and ambulatory by himself, patient also has history of asthma, is using inhaler as needed. Patient also has type 1 diabetes mellitus and on insulin pump hemoglobin A1c is 8.1%. Two the patient is going to be discharged home with PO Augmentin and p.o. doxycycline for seven days. Recommended patient to have over the counter probiotic with the antibiotic. Advised patient to follow up with PCP in 1-2 weeks. GENERAL: Not in acute distress. HEENT: EOMI, Moist mucous membranes. No scleral icterus. No cervical lymphadenopathy. LUNGS: mild wheezing. No accessory muscle use. CARDIOVASCULAR: Regular rate and rhythm. No murmur. No JVD. ABDOMEN: Soft, nontender and nondistended. No palpable masses. EXTREMITIES: No edema. Nontender. SKIN: No rashes or lesions. Warm. NEUROLOGIC: Alert and oriented X4 Condition at Discharge: Fair Final Diagnosis/Problems List # Sepsis secondary to possible Gm +/- Bacterial Pneumonia # Acute hypoxic respiratory failure likely due to Gram-positive/Gram-negative bacterial pneumonia # Asthma, not acute exacerbation # Type 1 diabetes mellitus on insulin pump # Diabetic neuropathy # Primary hypertension # Dyslipidemia # Obesity Discharge Disposition: Home SNF Discharge Will this Physician continue t: No Discharge Instruct/Medications Diet: Consistent carbohydrate, Cardiac 2g Na,low cholest Activity: No Restrictions, As Tolerated Follow Up/Referral: Follow up with PCP in 1-2 weeks. Medications: Augmentin 875 mg p.o. b.i.d. X 7 days Doxycycline 100 mg p.o. b.i.d. X 7 days Continue home medications Discharge Statement: "Patient was advised to return to the ER or call 911 if any headaches, dizziness, shortness of breath, chest pain, abdominal pain, bleeding, fevers, or worsening of medical condition. Patient was counseled about treatment plan, medications, possible side effects, patientverbalized understanding. All questions were answered to the best of my ability. This discharge took greater then 30 minutes in planning, reviewing documentation, counseling the patient, and discussing with other team members." ASSESSMENT ASSESSMENT Assessment # Sepsis secondary to possible Gm +/- Bacterial Pneumonia # Acute hypoxic respiratory failure likely due to Gram-positive/Gram-negative bacterial pneumonia # Asthma, not acute exacerbation # Type 1 diabetes mellitus on insulin pump # Diabetic neuropathy # Primary hypertension # Dyslipidemia # Obesity Date of Service: Aug 19, 2024 Billing Provider: GLYNN SALTER MD Common Visit Codes: 19606-TGA/OBS DISCH DAY >30min JUAN GARDNER RESIDENT Aug 19, 2024 12:05 GLYNN SALTER MD Aug 20, 2024 08:56
== END 2024-08-19 14:41 | disposition home or self-care (01) | DRG 871 ==
LOC: ER 14:56 → OVERFLOW 20:48 → EAST 08-18 01:30
PROVIDERS: ADMIT Student in an Organized Health Care Education/Training Program; ATTEND Student in an Organized Health Care Education/Training Program
DX: A41.50 Gram-negative sepsis, unspecified (principal); J15.69 Pneumonia due to other Gram-negative bacteria; J96.01 Acute respiratory failure with hypoxia; J15.9 Unspecified bacterial pneumonia; Z20.822 Contact with and (suspected) exposure to COVID-19; E78.5 Hyperlipidemia, unspecified; J45.909 Unspecified asthma, uncomplicated; Z96.41 Presence of insulin pump (external) (internal); E66.9 Obesity, unspecified; I10 Essential (primary) hypertension; J98.4 Other disorders of lung; E10.40 Type 1 diabetes mellitus with diabetic neuropathy, unspecified; Z68.31 Body mass index [BMI] 31.0-31.9, adult; Z88.7 Allergy status to serum and vaccine
CPT/HCPCS: 36415; 71045; 80048; 80061; 83036; 83605; 84484; 85025; 87426; 87804; 93005; 94640; 96374; 99291; 99292; G0378